=== PATIENT | female | born 1950 | race Caucasian/White ===

== ENCOUNTER → 2016-09-26 | Outpatient (CLI) | payer OTHER ==
--- NOTE | 2016-09-26 16:44 | RAD ---
Chest, 2 views, 09/26/2016: History: Follow-up lung nodule Comparison is made to a study from 12/20/2008. The heart size and pulmonary vascularity are normal. No pulmonary infiltrate is seen. There is a 12 mm nodule projected over the lateral aspect of the left mid chest on the PA view. It is not clearly delineated on the lateral view. It may have been present in retrospect on the previous study but is more prominent on the current exam. There is no evidence of pleural fluid. There is a mild thoracolumbar scoliosis with associated degenerative change. An outside CT chest study from 09/13/2015 demonstrated this nodule as well as other scattered nodules which are not radiographically visible. Allowing for technical differences it is probably of similar size. IMPRESSION: Small left lung nodule. CT surveillance will be the most accurate method of confirming stability.
== END | disposition home or self-care (01) ==
LOC: DXRAD 14:32
PROVIDERS: ATTEND Internal Medicine Pulmonary Disease
DX: R91.1 Solitary pulmonary nodule (principal)
CPT/HCPCS: 71020